=== PATIENT | female | born 1960 | race Caucasian/White ===

== ENCOUNTER 2017-06-27 14:39 | Inpatient (IN) | payer OTHER ==
[~2017-06-27] VITALS: Ht 160 cm; Wt 60.1 kg
[2017-06-27] MEDS ORDERED: SODIUM CHLORIDE FLUSH 10ML SYR IVF ONE (15:00)
[2017-06-27 15:42] LABS: BASOPHILS % (AUTO) 0 % (0-1); EOSINOPHILS # (AUTO) 0.07 x10^3/uL (0-0.4); EOSINOPHILS % (AUTO) 1 % (1-7); LYMPHOCYTES # (AUTO) 1.09 x10^3/uL (1-3.4); LYMPHOCYTES % (AUTO) 14 % (22-44); MD NO; MEAN CORPUSCULAR HGB CONC 33.4 g/dL (32.4-35.8); MEAN PLATELET VOLUME 9.8 fL (7.4-10.4); MONOCYTES # (AUTO) 0.38 x10^3/uL (0.2-0.8); MONOCYTES % (AUTO) 5 % (2-9); NEUTROPHILS # (AUTO) 6.51 x10^3/uL (1.8-6.8); NEUTROPHILS % (AUTO) 81 % (42-75); PLATELET COUNT 206 x10^3/uL (130-400); RED BLOOD COUNT 3.69 x10^6/uL (3.82-5.3); RED CELL DISTRIBUTION WIDTH 13.6 % (9.6-15.2)
[2017-06-27 15:52] LABS: ALBUMIN 2.9 g/dL (3.4-5.0); ANION GAP 8 mmol/L (5-15); CALCIUM 8.2 mg/dL (8.5-10.1); CHLORIDE 107 mmol/L (98-107); INTERNATIONAL NORMALIZED RATIO 0.91 (0.93-1.1); PROTHROMBIN TIME 9.5 Seconds (9.6-11.5)
[2017-06-27 15:54] LABS: CREATININE 5.52 mg/dL (0.55-1.02)
[2017-06-27] MEDS ORDERED: LISI-167 PO ×2 (15:55→15:56)
[2017-06-27] MEDS ORDERED: GABA300C10 PO (15:57)
[2017-06-27] MEDS ORDERED: FLUO20TA25 PO (15:57)
[2017-06-27] MEDS ORDERED: SEVE800T8 PO (15:59)
[2017-06-27] MEDS ORDERED: RANI-276 PO (16:00)
[2017-06-27] MEDS ORDERED: HYDROmorphone 2 MG/ML, 1ML ONE ×2 (16:07→19:47)
[2017-06-27] MEDS ORDERED: ONDANSETRON 2MG/ML, 2ML ONE ×2 (16:08→18:02)
[2017-06-27] MEDS ORDERED: HYDROmorphone 1 MG/ML, 1ML IVPush PRN (16:30)
[2017-06-27] MEDS ORDERED: ONDANSETRON 2MG/ML, 2ML IVPush ONE (16:30)
[2017-06-27] MEDS ORDERED: ONDANSETRON 2MG/ML, 2ML IVPush PRN ×2 (17:00→18:30)
[2017-06-27] MEDS ORDERED: ONDANSETRON ODT 4 MG PO PRN (17:00)
[2017-06-27] MEDS ORDERED: morphine SULFATE 10 MG/ML, 1ML IVPush PRN (17:00)
[2017-06-27] MEDS ORDERED: HYDROcodone/APAP 5/325 TABLET PO PRN (17:00)
[2017-06-27] MEDS ORDERED: ACETAMINOPHEN 325 MG TABLET PO PRN ×2 (17:00→18:30)
[2017-06-27] MEDS ORDERED: hydrALAzine 20 MG/ML, 1ML IVPush PRN (17:00)
[2017-06-27] MEDS ORDERED: SODIUM CHLORIDE FLUSH 10ML SYR IVF PRN (17:00)
[2017-06-27] MEDS ORDERED: LABETALOL 5MG/ML, 20ML IVPush PRN (17:00)
[2017-06-27] MEDS ORDERED: MIDAZOLAM 1 MG/ML, 2ML ONE (17:42)
[2017-06-27] MEDS ORDERED: LIDOCAINE-MPF 2% ,5ML ONE (17:43)
[2017-06-27] MEDS ORDERED: PROPOFOL 10 MG/ML, 20ML ONE (17:43)
[2017-06-27] MEDS ORDERED: FENTANYL PF 250 MCG/5ML ONE (17:43)
[2017-06-27] MEDS ORDERED: ROCURONIUM 10 MG/ML,10ML ONE (17:45)
[2017-06-27] MEDS ORDERED: CEFAZOLIN 1,000 MG ONE (18:02)
[2017-06-27] MEDS ORDERED: PHENYLEPHRINE 10 MG/ML ONE (18:02)
[2017-06-27] MEDS ORDERED: KETAMINE 10 MG/ML, 20ML ONE (18:02)
[2017-06-27] MEDS ORDERED: DEXAMETHASONE 4 MG/ML, 1ML ONE ×2 (18:18)
[2017-06-27] MEDS ORDERED: hydrALAzine 20 MG/ML, 1ML IV PRN (18:30)
[2017-06-27] MEDS ORDERED: MEPERIDINE/PF 25MG/0.5ML IVPush PRN (18:30)
[2017-06-27] MEDS ORDERED: OXYcodone 5 MG/5 ML ORAL.SOL UDC PO PRN (18:30)
[2017-06-27] MEDS ORDERED: FENTANYL PF 100 MCG/2ML IV PRN (18:30)
[2017-06-27] MEDS ORDERED: PROMETHAZINE 25 MG/ML, 1ML IV PRN (18:30)
[2017-06-27] MEDS ORDERED: LABETALOL 5MG/ML, 20ML IV PRN (18:30)
[2017-06-27] MEDS ORDERED: HYDROmorphone 1 MG/ML, 1ML IV PRN (18:30)
[2017-06-27] MEDS ORDERED: OXYcodone 5 MG/5 ML ORAL.SOL UDC ONE (19:40)
[2017-06-27] MEDS ORDERED: FENTANYL PF 100 MCG/2ML ONE (19:40)
[2017-06-27] MEDS ORDERED: INSULIN REGULAR 100 UNITS/ML, 3ML VIAL SQ-INSULIN SCH (21:00)
[2017-06-27] MEDS ORDERED: PHARMACY INSTRUCTION MC PRN (21:30)
[2017-06-27] MEDS ORDERED: HYDROcodone/APAP 10/325 MG TABLET PO PRN (21:30)
[2017-06-27] MEDS ORDERED: morphine SULFATE 10 MG/ML, 1ML IV PRN (21:30)
[2017-06-27] MEDS ORDERED: POTASSIUM CHLORIDE 20 MEQ in SODIUM CHLORIDE 0.9% 1,000 ML IV SCH (21:30)
[2017-06-27] MEDS ORDERED: SODIUM CHLORIDE 0.9% 1,000 ML IV SCH (22:00)
[2017-06-27] MEDS: INSULIN LISPRO 100 UNITS/ML, PEN SQ-INSULIN SCH (22:14)
[2017-06-27] MEDS: HEPARIN 5,000 UNITS/ML, 1ML SQ SCH (22:31)
[2017-06-27] MEDS: GABAPENTIN 300 MG CAPSULE PO SCH (22:32)
[2017-06-27] MEDS: FLUOXETINE 10 MG CAP PO SCH (22:32)
[2017-06-28 02:54] VITALS: BP 118/60
[2017-06-28] MEDS: OXYcodone 5 MG/5 ML ORAL.SOL UDC PO PRN ×4 (04:49→20:37)
[2017-06-28 05:15] LABS: ALANINE AMINOTRANSFERASE 22 U/L (12-78); ALBUMIN 2.2 g/dL (3.4-5.0); ANION GAP 10 mmol/L (5-15); CALCIUM 7.1 mg/dL (8.5-10.1); CHLORIDE 108 mmol/L (98-107); CREATININE 5.55 mg/dL (0.55-1.02)
[2017-06-28 05:17] LABS: ALKALINE PHOSPHATASE 67 U/L (45-117); BILIRUBIN,TOTAL 0.2 mg/dL (0.2-1.0); TOTAL PROTEIN 5.1 g/dL (6.4-8.2)
[2017-06-28 05:23] LABS: BASOPHILS % (AUTO) 0 % (0-1); EOSINOPHILS % (AUTO) 0 % (1-7); LYMPHOCYTES # (AUTO) 0.67 x10^3/uL (1-3.4); LYMPHOCYTES % (AUTO) 7 % (22-44); MD NO; MEAN CORPUSCULAR HEMOGLOBIN 31.3 pg (27.0-34.8); MEAN CORPUSCULAR HGB CONC 33.1 g/dL (32.4-35.8); MEAN CORPUSCULAR VOLUME 94.6 fL (80-100); MEAN PLATELET VOLUME 10.2 fL (7.4-10.4); MONOCYTES # (AUTO) 0.35 x10^3/uL (0.2-0.8); MONOCYTES % (AUTO) 4 % (2-9); NEUTROPHILS # (AUTO) 8.46 x10^3/uL (1.8-6.8); NEUTROPHILS % (AUTO) 89 % (42-75); PLATELET COUNT 167 x10^3/uL (130-400); RED BLOOD COUNT 2.64 x10^6/uL (3.82-5.3); RED CELL DISTRIBUTION WIDTH 13.9 % (9.6-15.2)
[2017-06-28 06:48] VITALS: BP 115/58
[2017-06-28] MEDS: HEPARIN 5,000 UNITS/ML, 1ML SQ SCH ×2 (06:53→11:32)
[2017-06-28] MEDS ORDERED: SEVELAMER 800MG TABLET PO SCH (08:00)
[2017-06-28] MEDS: INSULIN LISPRO 100 UNITS/ML, PEN SQ-INSULIN SCH ×4 (09:46→21:20)
[2017-06-28] MEDS: SODIUM CHLORIDE FLUSH 10ML SYR IVF SCH ×2 (09:47→20:38)
[2017-06-28] MEDS: LISINOPRIL 10 MG TABLET PO SCH (09:47)
[2017-06-28] MEDS: FLUOXETINE 10 MG CAP PO SCH ×2 (09:47→20:37)
[2017-06-28] MEDS ORDERED: INSU100I32 SQ-INSULIN (09:57)
[2017-06-28] MEDS: SEVELAMER 800MG TABLET PO SCH ×2 (11:33→16:51)
[2017-06-28] MEDS ORDERED: INSULIN DEGLUDEC SQ-INSULIN SCH (13:00)
[2017-06-28 13:50] VITALS: BP 118/56
[2017-06-28 18:42] VITALS: BP 112/56
[2017-06-28] MEDS: GABAPENTIN 300 MG CAPSULE PO SCH (20:37)
[2017-06-29 02:11] VITALS: BP 117/61
[2017-06-29 04:54] LABS: ALBUMIN 2.1 g/dL (3.4-5.0); ANION GAP 9 mmol/L (5-15); CALCIUM 7.4 mg/dL (8.5-10.1); CHLORIDE 103 mmol/L (98-107)
[2017-06-29 05:02] LABS: % IRON SATURATION 49 % (20-55); ALANINE AMINOTRANSFERASE 7 U/L (12-78); ALKALINE PHOSPHATASE 71 U/L (45-117); BILIRUBIN,TOTAL 0.2 mg/dL (0.2-1.0); CREATININE 5.98 mg/dL (0.55-1.02); IRON LEVEL 58 mcg/dL (50-170); TOTAL IRON BINDING CAPACITY 119 mcg/dL (250-450); TOTAL PROTEIN 5.1 g/dL (6.4-8.2)
[2017-06-29 05:04] LABS: MEAN CORPUSCULAR HEMOGLOBIN 30.9 pg (27.0-34.8); MEAN CORPUSCULAR HGB CONC 33.1 g/dL (32.4-35.8); MEAN CORPUSCULAR VOLUME 93.3 fL (80-100); MEAN PLATELET VOLUME 10.1 fL (7.4-10.4); PLATELET COUNT 147 x10^3/uL (130-400); RED CELL DISTRIBUTION WIDTH 13.9 % (9.6-15.2)
[2017-06-29 06:34] LABS: BASOPHILS # (AUTO) 0.02 x10^3/uL (0-0.1); BASOPHILS % (AUTO) 0 % (0-1); EOSINOPHILS % (AUTO) 1 % (1-7); LYMPHOCYTES % (AUTO) 25 % (22-44); MD SCAN; MONOCYTES # (AUTO) 0.74 x10^3/uL (0.2-0.8); MONOCYTES % (AUTO) 10 % (2-9); NEUTROPHILS # (AUTO) 4.67 x10^3/uL (1.8-6.8); NEUTROPHILS % (AUTO) 64 % (42-75)
[2017-06-29 07:15] VITALS: BP 133/56
[2017-06-29] MEDS ORDERED: DOCUSATE 100 MG CAPSULE ONE (07:59)
[2017-06-29] MEDS: FLUOXETINE 10 MG CAP PO SCH ×2 (08:04→20:06)
[2017-06-29] MEDS: DOCUSATE 100 MG CAPSULE PO SCH ×2 (08:04→20:05)
[2017-06-29] MEDS: SEVELAMER 800MG TABLET PO SCH ×3 (08:04→17:15)
[2017-06-29] MEDS: INSULIN LISPRO 100 UNITS/ML, PEN SQ-INSULIN SCH ×4 (08:05→20:14)
[2017-06-29] MEDS: SODIUM CHLORIDE FLUSH 10ML SYR IVF SCH (08:07)
[2017-06-29] MEDS: LISINOPRIL 10 MG TABLET PO SCH (08:07)
[2017-06-29] MEDS ORDERED: INSULIN DEGLUDEC SQ-INSULIN SCH (09:00)
[2017-06-29] MEDS ORDERED: IBUPROFEN 200 MG TABLET PO PRN (09:30)
[2017-06-29] MEDS ORDERED: IBUPROFEN 800 MG TABLET PO ONE (09:30)
[2017-06-29] MEDS ORDERED: IRON SUCROSE COMPLEX 100MG/5ML IV SCH (09:30)
[2017-06-29] MEDS ORDERED: DARBEPOETIN 200 MCG/ML SQ SCH (10:30)
[2017-06-29] MEDS ORDERED: OXYcodone 5 MG/5 ML ORAL.SOL UDC PO PRN (10:30)
[2017-06-29] MEDS: ACETAMINOPHEN 500 MG TABLET PO SCH ×2 (11:45→20:05)
[2017-06-29 13:06] VITALS: BP 120/64
[2017-06-29] MEDS ORDERED: ASCORBIC ACID 500 MG TABLET PO SCH (17:00)
[2017-06-29 19:11] VITALS: BP 149/57
[2017-06-29] MEDS: GABAPENTIN 300 MG CAPSULE PO SCH (20:05)
== END 2017-06-29 21:00 | disposition short-term general hospital (02) | DRG 480 ==
LOC: ED 16:47 → EDIP 16:48 → ED 17:08 → 4NOR 20:33
PROVIDERS: ADMIT Internal Medicine Pulmonary Disease; ATTEND Internal Medicine Pulmonary Disease
PROC: 0QH606Z Insertion of Intramedullary Internal Fixation Device into Right Upper Femur, Open Approach (ICD-10-PCS; principal; 2017-06-27 17:30)
PROC: 5A1D70Z Performance of Urinary Filtration, Intermittent, Less than 6 Hours Per Day (ICD-10-PCS; 2017-06-28)
DX: S72.141A Displaced intertrochanteric fracture of right femur, initial encounter for closed fracture (principal); N18.6 End stage renal disease; E11.22 Type 2 diabetes mellitus with diabetic chronic kidney disease; E11.40 Type 2 diabetes mellitus with diabetic neuropathy, unspecified; I12.0 Hypertensive chronic kidney disease with stage 5 chronic kidney disease or end stage renal disease; D63.1 Anemia in chronic kidney disease; N25.0 Renal osteodystrophy; W18.2XXA Fall in (into) shower or empty bathtub, initial encounter; Y92.002 Bathroom of unspecified non-institutional (private) residence as the place of occurrence of the external cause; Y93.E1 Activity, personal bathing and showering; Z99.2 Dependence on renal dialysis
CPT/HCPCS: 36415; 71045; 76001; 80048; 80053; 82040; 82306; 82728; 82962; 83540; 83550; 83735; 83970; 84100; 84550; 85025; 85610; 85730; 93005; 96374; 96375; C1713; J0690; J0881; J1100; J1170; J1644; J2250; J2405; J2704; J3010; J3490; J1815; J2370; J7030

== ENCOUNTER 2018-10-24 14:10 | Inpatient (IN) | payer OTHER ==
[~2018-10-24] VITALS: Ht 160 cm; Wt 49.9 kg
[~2018-10-24 14:10] MED LIST: FLUO20TA25 PO; GABA300C10 PO; INSU100I32 SQ-INSULIN; LISI-167 PO; RANI-448 PO; SEVE800T8 PO
[2018-10-24 14:54] LABS: BASOPHILS # (AUTO) 0.05 x10^3/uL (0-0.1); BASOPHILS % (AUTO) 0 % (0-1); EOSINOPHILS # (AUTO) 0.09 x10^3/uL (0-0.4); EOSINOPHILS % (AUTO) 1 % (1-7); LYMPHOCYTES # (AUTO) 1.94 x10^3/uL (1-3.4); LYMPHOCYTES % (AUTO) 18 % (22-44); MD NO; MEAN CORPUSCULAR HEMOGLOBIN 30.4 pg (27.0-34.8); MEAN CORPUSCULAR HGB CONC 32.6 g/dL (32.4-35.8); MEAN CORPUSCULAR VOLUME 93.3 fL (80-100); MEAN PLATELET VOLUME 9.3 fL (7.4-10.4); MONOCYTES # (AUTO) 0.85 x10^3/uL (0.2-0.8); MONOCYTES % (AUTO) 8 % (2-9); NEUTROPHILS # (AUTO) 8.17 x10^3/uL (1.8-6.8); NEUTROPHILS % (AUTO) 74 % (42-75); PLATELET COUNT 380 x10^3/uL (130-400); RED BLOOD COUNT 3.37 x10^6/uL (3.82-5.3); RED CELL DISTRIBUTION WIDTH 14.6 % (9.6-15.2)
--- NOTE | 2018-10-24 14:56 | NUR ---
PT IN RADIOLOGY AT THIS TIME.
--- NOTE | 2018-10-24 15:00 | NUR ---
late entry d/t patient care: pt presents to ED with left hip pain s/p fall today. pt's family reports pt is dizzy when standing, for last month. cms intact to left LE, bilateral legs have equal strength. pt is nonambulatory at this time, secondary to pain. pt is belarusian speaking, refusing interpretive services. son Kapil (age 33) at bedside translating at pt request. pt a&o, resps even and unlabored, nadn.
[2018-10-24 15:05] LABS: ALBUMIN 2.9 g/dL (3.4-5.0); ANION GAP 15 mmol/L (5-15); CALCIUM 9.1 mg/dL (8.5-10.1); CHLORIDE 101 mmol/L (98-107)
[2018-10-24 15:08] LABS: ALANINE AMINOTRANSFERASE 31 U/L (12-78); ALKALINE PHOSPHATASE 117 U/L (45-117); BILIRUBIN,TOTAL 0.5 mg/dL (0.2-1.0); CREATININE 9.59 mg/dL (0.55-1.02); TOTAL PROTEIN 6.9 g/dL (6.4-8.2)
--- NOTE | 2018-10-24 16:09 | NUR ---
PT BACK FROM CT, PT AWAKE, ALERT, RESPS EVEN AND UNLABORED. ASTERN. TECH AT BEDSIDE FOR REPEAT ORTHOS. Addendum: 10/24/18 at 1610 by ZAN PT BACK FROM CT, PT AWAKE, ALERT, RESPS EVEN AND UNLABORED. NADN. TECH AT BEDSIDE FOR ORTHOSTATIC VS.
--- NOTE | 2018-10-24 16:39 | NUR ---
orthostatics reviewed by AIDE Dove. EDPA at bedside to reassess.
--- NOTE | 2018-10-24 16:40 | NUR ---
RN instructed to hold PO meds.
[2018-10-24] MEDS ORDERED: HYDROcodone/APAP 5/325 TABLET PO ONE (17:00)
[2018-10-24] MEDS ORDERED: ONDANSETRON ODT 4 MG PO ONE (17:00)
[2018-10-24] MEDS ORDERED: ONDANSETRON 2MG/ML, 2ML IVPush ONE (17:00)
[2018-10-24] MEDS ORDERED: ONDANSETRON 2MG/ML, 2ML ONE (17:08)
[2018-10-24] MEDS ORDERED: MORPHINE SULFATE 4 MG/ML, 1ML ONE ×2 (17:08→18:24)
[2018-10-24] MEDS: MORPHINE SULFATE 4 MG/ML, 1ML IVPush PRN ×2 (17:10→18:26)
--- NOTE | 2018-10-24 17:21 | NUR ---
pt medicated per emar, tolerated well. all monitors in place . hospitalist at bedside.
--- NOTE | 2018-10-24 17:59 | NUR ---
report called to receiving OTILIA Keller. pt awaiting transport to room 369.
[2018-10-24] MEDS ORDERED: CHOL100012 PO (18:09)
[2018-10-24] MEDS ORDERED: ASCO10004 PO (18:09)
[2018-10-24] MEDS ORDERED: FOLI0.8T7 PO (18:09)
[2018-10-24] MEDS ORDERED: CALC0.25 PO (18:09)
[2018-10-24] MEDS ORDERED: DULO30CA2 PO (18:09)
[2018-10-24] MEDS ORDERED: IRBE75TA10 PO (18:09)
[2018-10-24] MEDS ORDERED: AMLO-150 PO (18:09)
[2018-10-24] MEDS ORDERED: OMEP-110 PO (18:09)
[2018-10-24] MEDS ORDERED: SEVE800T8 PO (18:09)
[2018-10-24] MEDS ORDERED: INSU100I32 SQ-INSULIN (18:09)
[2018-10-24] MEDS ORDERED: INSU100I17 SQ-INSULIN (18:09)
--- NOTE | 2018-10-24 18:23 | NUR ---
PT REPORTS LEFT POSTERIOR HIP PAIN IS NOW 6/10, REQUESTS SECOND MORPHINE DOSE. PT A&O, RESPS EVEN AND UNLABORED, FAMILY AT BEDSIDE. ALL MONITORS IN PLACE. 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
[2018-10-24] MEDS ORDERED: CARV6.2512 PO (18:37)
[2018-10-24] MEDS ORDERED: ACETAMINOPHEN 325 MG TABLET PO PRN (19:00)
[2018-10-24] MEDS ORDERED: BISACODYL 10 MG SUPP PR PRN (19:00)
[2018-10-24] MEDS ORDERED: POLYETHYLENE GLYCOL 17 GM PACKET PO PRN (19:00)
--- NOTE | 2018-10-24 19:08 | NUR ---
REPORT GIVEN TO [facility] RIGGER JOHN. PT AWAITING TRANSPORT TO ROOM 404-1. PT A&O, RESPS EVEN AND UNLABORED. DENIES PAIN AT THIS TIME. FAMILY AT BEDSIDE.
[2018-10-24 19:20] LABS: HEMOGLOBIN A1C 8.2 % (4.2-6.3)
[2018-10-24] MEDS: CHOLECALCIFEROL 1,000 UNIT TABLET PO SCH (19:42)
[2018-10-24] MEDS: HEPARIN 5,000 UNITS/ML, 1ML SQ SCH (19:42)
[2018-10-24] MEDS: SEVELAMER CARBONATE 800MG TAB PO SCH (19:42)
[2018-10-24] MEDS: ONDANSETRON ODT 4 MG PO PRN (20:09)
[2018-10-24 20:14] VITALS: BP 194/82
[2018-10-24 20:28] VITALS: BP 179/71
[2018-10-24 20:34] VITALS: BP 150/59
[2018-10-24] MEDS ORDERED: INSU100C SQ-INSULIN (21:22)
--- NOTE | 2018-10-24 21:45 | NUR ---
PT WAS TRANSPORTED TO [facility] AT 1920. PRIOR TO TRANSPORT, MED REC UPDATED BY THIS RN AFTER VERIFYING WITH PT. HOSPITALIST HOMA SCHRADER CALLED TO NOTIFY THAT PT'S MED REC HAS BEEN UPDATED TO INCLUDE COREG AND HUMALOG INSTEAD OF NOVOLOG. RACIEL NOTIFIED THAT MED REC REQUIRES PROVIDER REVIEW. RECEIVING OTILIA BLEVINS.
[2018-10-25 01:20] VITALS: BP 132/68
[2018-10-25] MEDS: HEPARIN 5,000 UNITS/ML, 1ML SQ SCH ×3 (03:29→21:47)
[2018-10-25 06:33] LABS: BASOPHILS # (AUTO) 0.03 x10^3/uL (0-0.1); BASOPHILS % (AUTO) 0 % (0-1); EOSINOPHILS # (AUTO) 0.09 x10^3/uL (0-0.4); EOSINOPHILS % (AUTO) 1 % (1-7); LYMPHOCYTES # (AUTO) 2.35 x10^3/uL (1-3.4); LYMPHOCYTES % (AUTO) 24 % (22-44); MD NO; MEAN CORPUSCULAR HEMOGLOBIN 30.9 pg (27.0-34.8); MEAN CORPUSCULAR HGB CONC 32.5 g/dL (32.4-35.8); MEAN CORPUSCULAR VOLUME 94.9 fL (80-100); MEAN PLATELET VOLUME 9.7 fL (7.4-10.4); MONOCYTES # (AUTO) 0.81 x10^3/uL (0.2-0.8); MONOCYTES % (AUTO) 8 % (2-9); NEUTROPHILS # (AUTO) 6.54 x10^3/uL (1.8-6.8); NEUTROPHILS % (AUTO) 67 % (42-75); PLATELET COUNT 325 x10^3/uL (130-400); RED CELL DISTRIBUTION WIDTH 14.9 % (9.6-15.2)
[2018-10-25 07:15] LABS: ALBUMIN 2.7 g/dL (3.4-5.0); CALCIUM 8.8 mg/dL (8.5-10.1); CHLORIDE 101 mmol/L (98-107)
[2018-10-25 07:23] LABS: % IRON SATURATION 16 % (20-55); ALANINE AMINOTRANSFERASE 28 U/L (12-78); ALKALINE PHOSPHATASE 97 U/L (45-117); ANION GAP 15 mmol/L (5-15); BILIRUBIN,TOTAL 0.4 mg/dL (0.2-1.0); IRON LEVEL 24 mcg/dL (50-170); TOTAL IRON BINDING CAPACITY 147 mcg/dL (250-450); TOTAL PROTEIN 6.4 g/dL (6.4-8.2)
[2018-10-25 08:28] VITALS: BP 157/67
[2018-10-25] MEDS ORDERED: INSULIN DEGLUDEC 15 UNIT SQ-INSULIN SCH (09:00)
[2018-10-25] MEDS: DULOXETINE 30 MG CAPSULE.DR PO SCH (11:04)
[2018-10-25] MEDS: CALCITRIOL 0.25 MCG CAPSULE PO SCH (11:04)
[2018-10-25] MEDS: MULTIVITS,STRESS FORMULA 1 TABLET PO SCH (11:04)
[2018-10-25] MEDS: ASCORBIC ACID 500 MG TABLET PO SCH (11:04)
[2018-10-25] MEDS: SENNA/DOCUSATE TABLET PO SCH (11:04)
[2018-10-25] MEDS: CHOLECALCIFEROL 1,000 UNIT TABLET PO SCH ×2 (11:05→21:47)
[2018-10-25] MEDS: OMEPRAZOLE 20 MG CAPSULE.DR PO SCH (11:05)
[2018-10-25] MEDS: SEVELAMER CARBONATE 800MG TAB PO SCH ×3 (11:05→17:58)
[2018-10-25] MEDS ORDERED: DEXTROSE 4 GM TAB.CHEW PO PRN (12:00)
[2018-10-25] MEDS ORDERED: DEXTROSE 50%, 50ML SYRINGE IVPush PRN (12:00)
[2018-10-25] MEDS ORDERED: GLUCAGON 1 MG IM PRN (12:00)
[2018-10-25] MEDS: SODIUM CHLORIDE FLUSH 10ML SYR IVF SCH ×2 (12:30→21:48)
[2018-10-25 13:05] LABS: FREE T4 (FREE THYROXINE) 1.31 ng/dL (0.76-1.46)
[2018-10-25] MEDS: INSULIN DEGLUDEC 14 UNIT SQ-INSULIN SCH (13:12)
[2018-10-25] MEDS: INSULIN LISPRO 100 UNITS/ML, PEN SQ-INSULIN SCH ×3 (13:37→21:47)
[2018-10-25 15:40] VITALS: BP 128/67
[2018-10-25] MEDS: ONDANSETRON ODT 4 MG PO PRN (17:59)
[2018-10-25 19:58] VITALS: BP 145/72
[2018-10-25] MEDS ORDERED: GENTAMICIN CRM 0.1%, 30GM TP SCH (22:00)
[2018-10-25] MEDS ORDERED: OXYcodone IR 5MG TABLET PO PRN (22:30)
[2018-10-25] MEDS ORDERED: OXYcodone IR 5MG TABLET ONE (22:31)
[2018-10-26 00:26] VITALS: BP 143/73
[2018-10-26 06:08] LABS: BASOPHILS # (AUTO) 0.02 x10^3/uL (0-0.1); BASOPHILS % (AUTO) 0 % (0-1); EOSINOPHILS # (AUTO) 0.07 x10^3/uL (0-0.4); EOSINOPHILS % (AUTO) 1 % (1-7); LYMPHOCYTES # (AUTO) 1.68 x10^3/uL (1-3.4); LYMPHOCYTES % (AUTO) 20 % (22-44); MD NO; MEAN CORPUSCULAR HGB CONC 32.8 g/dL (32.4-35.8); MEAN CORPUSCULAR VOLUME 94.5 fL (80-100); MEAN PLATELET VOLUME 9.6 fL (7.4-10.4); MONOCYTES # (AUTO) 0.61 x10^3/uL (0.2-0.8); MONOCYTES % (AUTO) 7 % (2-9); NEUTROPHILS % (AUTO) 72 % (42-75); PLATELET COUNT 330 x10^3/uL (130-400); RED BLOOD COUNT 3.25 x10^6/uL (3.82-5.3); RED CELL DISTRIBUTION WIDTH 15.3 % (9.6-15.2)
[2018-10-26] MEDS: HEPARIN 5,000 UNITS/ML, 1ML SQ SCH (06:12)
[2018-10-26 06:22] LABS: CHLORIDE 95 mmol/L (98-107)
[2018-10-26 06:34] LABS: % IRON SATURATION 11 % (20-55); ALANINE AMINOTRANSFERASE 25 U/L (12-78); ALBUMIN 2.7 g/dL (3.4-5.0); ALKALINE PHOSPHATASE 107 U/L (45-117); ANION GAP 14 mmol/L (5-15); BILIRUBIN,TOTAL 0.4 mg/dL (0.2-1.0); CALCIUM 8.7 mg/dL (8.5-10.1); IRON LEVEL 25 mcg/dL (50-170); TOTAL IRON BINDING CAPACITY 221 mcg/dL (250-450)
[2018-10-26] MEDS ORDERED: FLUDROCORTISONE 0.1 MG TABLET PO SCH ×2 (09:00)
[2018-10-26] MEDS ORDERED: LISINOPRIL 10 MG TABLET PO SCH (09:00)
[2018-10-26] MEDS: INSULIN LISPRO 100 UNITS/ML, PEN SQ-INSULIN SCH ×2 (09:36→11:00)
[2018-10-26] MEDS: INSULIN DEGLUDEC 14 UNIT SQ-INSULIN SCH (09:36)
[2018-10-26] MEDS: SEVELAMER CARBONATE 800MG TAB PO SCH ×2 (09:38→13:54)
[2018-10-26] MEDS: CALCITRIOL 0.25 MCG CAPSULE PO SCH (09:38)
[2018-10-26] MEDS: OMEPRAZOLE 20 MG CAPSULE.DR PO SCH (09:38)
[2018-10-26] MEDS: MULTIVITS,STRESS FORMULA 1 TABLET PO SCH (09:39)
[2018-10-26] MEDS: SENNA/DOCUSATE TABLET PO SCH (09:39)
[2018-10-26] MEDS: CHOLECALCIFEROL 1,000 UNIT TABLET PO SCH (09:39)
[2018-10-26] MEDS: ASCORBIC ACID 500 MG TABLET PO SCH (09:39)
[2018-10-26] MEDS: DULOXETINE 30 MG CAPSULE.DR PO SCH (09:41)
[2018-10-26] MEDS: SODIUM CHLORIDE FLUSH 10ML SYR IVF SCH (09:42)
[2018-10-26 09:50] VITALS: BP 113/66
[2018-10-26] MEDS ORDERED: MAALOX/HYOSCYAMINE/LIDOCAINE 45 ML BTL PO ONE (11:00)
[2018-10-26 12:22] LABS: ANION GAP 11 mmol/L (5-15); CALCIUM 9.1 mg/dL (8.5-10.1); CHLORIDE 98 mmol/L (98-107)
[2018-10-26 13:40] VITALS: BP 113/69
[2018-10-26] MEDS ORDERED: MIRT15TA4 PO (14:15)
[2018-10-26] MEDS ORDERED: FLUD0.1T PO (14:15)
[2018-10-26] MEDS ORDERED: ACET325T14 PO (14:15)
[2018-10-26] MEDS ORDERED: ONDA4TAB7 PO (14:15)
[2018-10-26] MEDS ORDERED: PANT20TA3 PO (14:15)
[2018-10-26] MEDS ORDERED: LIDOCAINE 4% CREAM 5GM TUBE EXT PRN (14:30)
[2018-10-26] MEDS ORDERED: PANTOPRAZOLE 20MG TABLET PO SCH (16:00)
[2018-10-26] MEDS ORDERED: MIRTAZAPINE 15 MG TABLET PO SCH (21:00)
== END 2018-10-26 17:00 | disposition home health service (06) | DRG 73 ==
LOC: ED 17:05 → EDIP 17:06 → ED 17:27 → 4WST 19:19 → DCLOUNGE 10-26 16:32
PROVIDERS: ADMIT Internal Medicine; ATTEND Internal Medicine
PROC: 3E1M39Z Irrigation of Peritoneal Cavity using Dialysate, Percutaneous Approach (ICD-10-PCS; principal; 2018-10-25)
DX: G90.8 Other disorders of autonomic nervous system (principal); N18.6 End stage renal disease; E27.40 Unspecified adrenocortical insufficiency; I12.0 Hypertensive chronic kidney disease with stage 5 chronic kidney disease or end stage renal disease; I95.1 Orthostatic hypotension; R29.6 Repeated falls; D63.1 Anemia in chronic kidney disease; F32.9 Major depressive disorder, single episode, unspecified; E11.22 Type 2 diabetes mellitus with diabetic chronic kidney disease; E11.42 Type 2 diabetes mellitus with diabetic polyneuropathy; Z99.2 Dependence on renal dialysis; K21.9 Gastro-esophageal reflux disease without esophagitis; R63.0 Anorexia; Z79.4 Long term (current) use of insulin
CPT/HCPCS: 36415; 80048; 80053; 82306; 82533; 82728; 82947; 82962; 83036; 83540; 83550; 83735; 83970; 84100; 84439; 84443; 84550; 85025; 86704; 86706; 87340; 93005; 93306; 93880; 96374; 96375; 96376; G0378; J1644; J2405; Q0162; J2270

== ENCOUNTER 2018-12-26 18:15 | Inpatient (IN) | payer OTHER ==
[~2018-12-26] VITALS: Ht 165.1 cm; Wt 53.5 kg
[2018-12-29 14:05] VITALS: BP 111/58
== END 2018-12-29 16:28 | disposition home or self-care (01) | DRG 77 ==
LOC: ED 19:57 → EDIP 20:00 → CCU 22:47 → 4WST 12-27 10:35
PROVIDERS: ADMIT Family Medicine; ATTEND Family Medicine
PROC: 3E1M39Z Irrigation of Peritoneal Cavity using Dialysate, Percutaneous Approach (ICD-10-PCS; principal; 2018-12-26)
PROC: 3E1M39Z Irrigation of Peritoneal Cavity using Dialysate, Percutaneous Approach (ICD-10-PCS; 2018-12-27)
PROC: 0T9B70Z Drainage of Bladder with Drainage Device, Via Natural or Artificial Opening (ICD-10-PCS; 2018-12-27)
PROC: 3E1M39Z Irrigation of Peritoneal Cavity using Dialysate, Percutaneous Approach (ICD-10-PCS; 2018-12-28)
DX: I67.4 Hypertensive encephalopathy (principal); E43 Unspecified severe protein-calorie malnutrition; N18.6 End stage renal disease; E27.40 Unspecified adrenocortical insufficiency; I12.0 Hypertensive chronic kidney disease with stage 5 chronic kidney disease or end stage renal disease; I16.9 Hypertensive crisis, unspecified; N25.81 Secondary hyperparathyroidism of renal origin; Z68.1 Body mass index [BMI] 19.9 or less, adult; D63.1 Anemia in chronic kidney disease; E11.22 Type 2 diabetes mellitus with diabetic chronic kidney disease; E11.36 Type 2 diabetes mellitus with diabetic cataract; E11.42 Type 2 diabetes mellitus with diabetic polyneuropathy; E11.43 Type 2 diabetes mellitus with diabetic autonomic (poly)neuropathy; E11.65 Type 2 diabetes mellitus with hyperglycemia; E88.89 Other specified metabolic disorders; E55.9 Vitamin D deficiency, unspecified; F32.9 Major depressive disorder, single episode, unspecified; F41.9 Anxiety disorder, unspecified; H54.62 Unqualified visual loss, left eye, normal vision right eye; I45.81 Long QT syndrome; I95.1 Orthostatic hypotension; K21.9 Gastro-esophageal reflux disease without esophagitis; Z79.899 Other long term (current) drug therapy; Z79.4 Long term (current) use of insulin; Z99.2 Dependence on renal dialysis
CPT/HCPCS: 36415; 70450; 70551; 71045; 80048; 80053; 80061; 80069; 80307; 81001; 82040; 82140; 82533; 82947; 82962; 83036; 83735; 84100; 84311; 84439; 84443; 84484; 85025; 87040; 87070; 87081; 87086; 87205; 89051; 90945; 93005; 99285; G0378; J1644; J2405; J2550; 92523-GN; C9113; J0360; J1815; J2270; J7050

== ENCOUNTER 2019-03-27 12:19 | Inpatient (IN) | payer OTHER ==
[~2019-03-27] VITALS: Ht 160 cm; Wt 62.4 kg
[~2019-03-27 12:19] MED LIST changes: +ACET325T14 PO; +AMLO-150 PO; +AMLO2.5T5 PO; +ASCO10004 PO; +CALC0.25 PO; +CARV6.2512 PO; +CHOL100012 PO; +CHOL10003 PO; +DULO30CA2 PO; +DULO30CA44 PO; +FLUD0.1T PO; +FOLI0.8T7 PO; +INSU100C SQ-INSULIN; +INSU100I17 SC; +INSU100I17 SQ-INSULIN; +IRBE75TA10 PO; +MEGE40TA PO; +MEGESTROL PO; +MIRT-34 PO; +OMEP-110 PO; +OMEP40CA42 PO; +ONDA4TAB7 PO; +PANT20TA3 PO; +SEVE2.4P PO; +VITA1CAP PO
--- NOTE | 2019-03-27 13:28 | NUR ---
TASK RN: PT WC'D TO ROOM 21 FROM [facility] FOR C/O HAVING ISSUES W/ PERITONEAL DIALYSIS CATHETER. PER FAMILY THE MACHINE AT HOME DID NOT TAKE THE SOLUTION OUT OF PATIENT'S ABDOMEN. THEY ALSO STARTED HAVING ISSUES W/ INSERTING AND TAKING OUT THE SOLUTION. FOUL ODOR PER FAMILY FROM DIALYSIS CATHETER. PT HAD TEMPORARY CATHETER PLACED TO R CHEST FOR DIALYSIS. LAST DIALYSIS SUNDAY. WAS TOLD BY HER UROLOGIST DR. CARMEN PARK TO COME TO ED FOR PERITONEAL CATHETER REPLACEMENT. PT ALSO HAVING ISSUES W/ ABDOMEN PAIN/BLOATING AFTER SHE STARTED HAVING ISSUES W/ CATHETER.
[2019-03-27 13:33] LABS: ALANINE AMINOTRANSFERASE 37 U/L (12-78); ALBUMIN 3.1 g/dL (3.4-5.0); ANION GAP 11 mmol/L (5-15); CALCIUM 9.8 mg/dL (8.5-10.1); CHLORIDE 94 mmol/L (98-107); CREATININE 6.95 mg/dL (0.55-1.02)
[2019-03-27 13:34] LABS: MEAN CORPUSCULAR HEMOGLOBIN 28.6 pg (27.0-34.8); MEAN CORPUSCULAR HGB CONC 31.9 g/dL (32.4-35.8); MEAN CORPUSCULAR VOLUME 89.4 fL (80-100); MEAN PLATELET VOLUME 9.3 fL (7.4-10.4); PLATELET COUNT 449 x10^3/uL (130-400); RED BLOOD COUNT 3.38 x10^6/uL (3.82-5.3); RED CELL DISTRIBUTION WIDTH 24.5 % (9.6-15.2)
[2019-03-27 13:35] LABS: ALKALINE PHOSPHATASE 146 U/L (45-117); BILIRUBIN,TOTAL 0.6 mg/dL (0.2-1.0); TOTAL PROTEIN 7.2 g/dL (6.4-8.2)
[2019-03-27 14:20] LABS: MD YES
[2019-03-27 14:25] LABS: EOS#(MANUAL) 0.14 x10^3/uL (0.0-0.4); EOS% (MANUAL) 2 % (1-7); LYMPH#(MANUAL) 1.12 x10^3/uL (1-3.4); LYMPHS% (MANUAL) 16 % (22-44); MONOS#(MANUAL) 0.98 x10^3/uL (0.3-2.7); MONOS% (MANUAL) 14 % (2-9); SEG#(MANUAL) 4.76 x10^3/uL (1.8-6.8); SEGS% (MANUAL) 68 % (42-75)
[2019-03-27 14:26] LABS: <PLATELET ESTIMATE> INCREASED; <PLT MORPHOLOGY> NORMAL PLT MORPH; ANISOCYTOSIS 1+; MICROCYTOSIS 1+; OVALOCYTES 1+; POLYCHROMASIA 1+
--- NOTE | 2019-03-27 14:45 | NUR ---
PT TO BE ADMITTED, PIV INITIATED, NAD NOTED
[2019-03-27] MEDS ORDERED: CEFOTETAN PMX 1GM/50ML 50 ML IV ONE (15:30)
[2019-03-27 16:08] VITALS: BP 189/66
--- NOTE | 2019-03-27 16:12 | NUR ---
LATE ENTRY: REPORT GIVEN TO RECIEVING RN
[2019-03-27] MEDS ORDERED: ACETAMINOPHEN 325 MG TABLET PO PRN (17:00)
[2019-03-27] MEDS ORDERED: DOCUSATE 100 MG CAPSULE PO PRN (17:00)
[2019-03-27] MEDS: SEVELAMER CARBONATE 800MG TAB PO SCH (17:00)
[2019-03-27] MEDS ORDERED: BISACODYL 10 MG SUPP PR PRN (17:00)
[2019-03-27] MEDS ORDERED: ONDANSETRON 2MG/ML, 2ML IVPush PRN (17:00)
[2019-03-27] MEDS ORDERED: POLYETHYLENE GLYCOL 17 GM PACKET PO PRN (17:00)
[2019-03-27] MEDS ORDERED: morphine SULFATE 10 MG/ML, 1ML IVPush PRN (17:00)
[2019-03-27] MEDS ORDERED: LABETALOL 5MG/ML, 20ML IVPush PRN (17:00)
[2019-03-27] MEDS: FLU VACC QS2019-20 36MOS UP/PF 0.5 ML IM ONE ×2 (17:30→23:03)
[2019-03-27] MEDS ORDERED: PHARMACY MAY ADJ FOR RENAL FX MC PRN (17:30)
[2019-03-27] MEDS ORDERED: ARANESP 100 MCG/ML **ESRD SQ SCH (19:00)
[2019-03-27] MEDS: hydrALAzine 20 MG/ML, 1ML IVPush PRN (19:51)
[2019-03-27 19:56] VITALS: BP 166/77
[2019-03-27] MEDS: LISINOPRIL 10 MG TABLET PO SCH (21:00)
[2019-03-27] MEDS: CARVEDILOL 6.25 MG TABLET PO SCH (21:00)
[2019-03-27] MEDS: AMLODIPINE 2.5 MG TABLET PO SCH (21:00)
[2019-03-27] MEDS ORDERED: GLUCAGON 1 MG IM PRN (22:30)
[2019-03-27] MEDS ORDERED: DEXTROSE 4 GM TAB.CHEW PO PRN (22:30)
[2019-03-27] MEDS ORDERED: DEXTROSE 50%, 50ML SYRINGE IVPush PRN (22:30)
[2019-03-27] MEDS: HEPARIN 5,000 UNITS/ML, 1ML SQ SCH (23:00)
[2019-03-27] MEDS: SODIUM CHLORIDE FLUSH 10ML SYR IVF SCH (23:03)
[2019-03-27] MEDS: PIPERACILLIN/TAZO/PMX 2.25GM 50 ML IV SCH (23:26)
[2019-03-28] VITALS (10 sets, daily range): BP systolic 147–197; BP diastolic 47–86
[2019-03-28] MEDS: hydrALAzine 20 MG/ML, 1ML IVPush PRN ×2 (01:51→14:35)
[2019-03-28 05:29] LABS: MEAN CORPUSCULAR HEMOGLOBIN 29.4 pg (27.0-34.8); MEAN CORPUSCULAR HGB CONC 32.1 g/dL (32.4-35.8); MEAN CORPUSCULAR VOLUME 91.6 fL (80-100); MEAN PLATELET VOLUME 9.4 fL (7.4-10.4); PLATELET COUNT 387 x10^3/uL (130-400); RED BLOOD COUNT 3.17 x10^6/uL (3.82-5.3)
[2019-03-28 05:39] LABS: ALANINE AMINOTRANSFERASE 31 U/L (12-78); ALBUMIN 2.8 g/dL (3.4-5.0); ANION GAP 8 mmol/L (5-15); CHLORIDE 106 mmol/L (98-107); CREATININE 4.33 mg/dL (0.55-1.02)
[2019-03-28 05:41] LABS: ALKALINE PHOSPHATASE 107 U/L (45-117); BILIRUBIN,TOTAL 0.6 mg/dL (0.2-1.0); TOTAL PROTEIN 6.7 g/dL (6.4-8.2)
[2019-03-28 05:57] LABS: BASOPHILS # (AUTO) 0.02 x10^3/uL (0-0.1); BASOPHILS % (AUTO) 0 % (0-1); EOSINOPHILS # (AUTO) 0.17 x10^3/uL (0-0.4); EOSINOPHILS % (AUTO) 3 % (1-7); LYMPHOCYTES # (AUTO) 1.23 x10^3/uL (1-3.4); LYMPHOCYTES % (AUTO) 19 % (22-44); MD SCAN; MONOCYTES # (AUTO) 0.81 x10^3/uL (0.2-0.8); MONOCYTES % (AUTO) 13 % (2-9); NEUTROPHILS # (AUTO) 4.16 x10^3/uL (1.8-6.8); NEUTROPHILS % (AUTO) 65 % (42-75)
[2019-03-28] MEDS: HEPARIN 5,000 UNITS/ML, 1ML SQ SCH ×2 (07:00→14:24)
[2019-03-28] MEDS: INSULIN LISPRO 100 UNITS/ML, PEN SQ-INSULIN SCH ×5 (07:00→22:23)
[2019-03-28] MEDS: SEVELAMER CARBONATE 800MG TAB PO SCH ×3 (08:00→20:16)
[2019-03-28] MEDS ORDERED: VANCOMYCIN PER PHARMACY MC PRN (08:30)
[2019-03-28] MEDS: LISINOPRIL 10 MG TABLET PO SCH ×2 (08:51→20:18)
[2019-03-28] MEDS: AMLODIPINE 2.5 MG TABLET PO SCH ×2 (08:51→20:17)
[2019-03-28] MEDS: DULOXETINE 30 MG CAPSULE.DR PO SCH (08:52)
[2019-03-28] MEDS: CALCITRIOL 0.25 MCG CAPSULE PO SCH (08:52)
[2019-03-28] MEDS: CARVEDILOL 6.25 MG TABLET PO SCH ×2 (08:52→20:18)
[2019-03-28] MEDS: PIPERACILLIN/TAZO/PMX 2.25GM 50 ML IV SCH ×2 (08:54→20:16)
[2019-03-28] MEDS: SODIUM CHLORIDE FLUSH 10ML SYR IVF SCH ×2 (08:54→20:18)
[2019-03-28] MEDS ORDERED: PHARMACOKINETIC MONITORING MC PRN (09:00)
[2019-03-28] MEDS ORDERED: PHARMACOKINETIC CONSULTATION MC ONE (09:00)
[2019-03-28] MEDS ORDERED: VANCOMYCIN 1,100 MG in SODIUM CHLORIDE 0.9% 250 ML IV ONE (09:30)
[2019-03-28] MEDS ORDERED: BUPIVACAINE/PF 0.5% ONE (15:58)
[2019-03-28] MEDS ORDERED: EPINEPHRINE 1 MG/ML, 1ML ONE (15:58)
[2019-03-28] MEDS ORDERED: FENTANYL PF 100 MCG/2ML ONE ×2 (15:58→18:20)
[2019-03-28] MEDS ORDERED: LIDOCAINE GEL 2%, 5ML ONE (15:59)
[2019-03-28] MEDS ORDERED: SUCCINYLCHOLINE 20 MG/ML, 10ML ONE (17:09)
[2019-03-28] MEDS ORDERED: ROCURONIUM 10 MG/ML,10ML ONE (17:09)
[2019-03-28] MEDS ORDERED: MIDAZOLAM 1 MG/ML, 2ML IV PRN (17:30)
[2019-03-28] MEDS ORDERED: hydrALAzine 20 MG/ML, 1ML IV PRN (17:30)
[2019-03-28] MEDS ORDERED: OXYcodone 5 MG/5 ML ORAL.SOL UDC PO PRN (17:30)
[2019-03-28] MEDS ORDERED: PROMETHAZINE 25 MG/ML, 1ML IV PRN (17:30)
[2019-03-28] MEDS ORDERED: ACETAMINOPHEN 325 MG TABLET PO PRN (17:30)
[2019-03-28] MEDS ORDERED: METOPROLOL 1 MG/ML, 5ML IV PRN (17:30)
[2019-03-28] MEDS ORDERED: ALBUTEROL/IPRATROPIUM 2.5MG/0.5MG, 3 ML NPPB PRN (17:30)
[2019-03-28] MEDS ORDERED: DEXAMETHASONE 4 MG/ML, 1ML ONE (17:40)
[2019-03-28] MEDS ORDERED: PROPOFOL 10 MG/ML, 20ML ONE (17:40)
[2019-03-28] MEDS ORDERED: ONDANSETRON 2MG/ML, 2ML ONE ×3 (17:40)
[2019-03-28] MEDS: FENTANYL PF 100 MCG/2ML IV PRN ×2 (18:12→18:22)
[2019-03-28] MEDS ORDERED: ALBUTEROL/IPRATROPIUM 2.5MG/0.5MG, 3 ML ONE (18:13)
[2019-03-29] VITALS: BP 156/67
[2019-03-29] MEDS: HEPARIN 5,000 UNITS/ML, 1ML SQ SCH ×4 (00:14→23:50)
[2019-03-29] MEDS: PIPERACILLIN/TAZO/PMX 2.25GM 50 ML IV SCH ×3 (04:26→20:41)
[2019-03-29] MEDS: hydrALAzine 20 MG/ML, 1ML IVPush PRN (05:24)
[2019-03-29 07:15] VITALS: BP 146/63
[2019-03-29] MEDS: DULOXETINE 30 MG CAPSULE.DR PO SCH (08:20)
[2019-03-29] MEDS: CALCITRIOL 0.25 MCG CAPSULE PO SCH (08:20)
[2019-03-29] MEDS: SEVELAMER CARBONATE 800MG TAB PO SCH ×3 (08:21→16:54)
[2019-03-29 08:22] LABS: MEAN CORPUSCULAR HEMOGLOBIN 29.2 pg (27.0-34.8); MEAN CORPUSCULAR HGB CONC 31.9 g/dL (32.4-35.8); MEAN CORPUSCULAR VOLUME 91.8 fL (80-100); MEAN PLATELET VOLUME 9.7 fL (7.4-10.4); PLATELET COUNT 339 x10^3/uL (130-400); RED BLOOD COUNT 3.06 x10^6/uL (3.82-5.3); RED CELL DISTRIBUTION WIDTH 24.6 % (9.6-15.2)
[2019-03-29] MEDS: INSULIN LISPRO 100 UNITS/ML, PEN SQ-INSULIN SCH ×4 (08:30→20:42)
[2019-03-29 08:43] LABS: ALANINE AMINOTRANSFERASE 24 U/L (12-78); ALBUMIN 2.6 g/dL (3.4-5.0); ALKALINE PHOSPHATASE 100 U/L (45-117); ANION GAP 10 mmol/L (5-15); BASOPHILS # (AUTO) 0.01 x10^3/uL (0-0.1); BASOPHILS % (AUTO) 0 % (0-1); BILIRUBIN,TOTAL 0.5 mg/dL (0.2-1.0); CALCIUM 8.8 mg/dL (8.5-10.1); CHLORIDE 105 mmol/L (98-107); CREATININE 6.39 mg/dL (0.55-1.02); EOSINOPHILS # (AUTO) 0.03 x10^3/uL (0-0.4); EOSINOPHILS % (AUTO) 1 % (1-7); LYMPHOCYTES # (AUTO) 0.77 x10^3/uL (1-3.4); LYMPHOCYTES % (AUTO) 16 % (22-44); MD SCAN; MONOCYTES # (AUTO) 0.33 x10^3/uL (0.2-0.8); MONOCYTES % (AUTO) 7 % (2-9); NEUTROPHILS # (AUTO) 3.58 x10^3/uL (1.8-6.8); NEUTROPHILS % (AUTO) 76 % (42-75); TOTAL PROTEIN 6.1 g/dL (6.4-8.2)
[2019-03-29] MEDS: LISINOPRIL 10 MG TABLET PO SCH ×2 (09:00→20:40)
[2019-03-29] MEDS: AMLODIPINE 2.5 MG TABLET PO SCH ×2 (09:00→20:40)
[2019-03-29] MEDS: SODIUM CHLORIDE FLUSH 10ML SYR IVF SCH ×2 (09:18→20:41)
[2019-03-29] MEDS: INSULIN GLARGINE 100 UNITS/ML, PEN SQ-INSULIN SCH ×2 (09:36→20:42)
[2019-03-29 14:00] VITALS: BP 147/56
[2019-03-29] MEDS: CARVEDILOL 6.25 MG TABLET PO SCH ×2 (14:57→20:41)
[2019-03-29 19:18] VITALS: BP 132/62
[2019-03-30] VITALS (7 sets, daily range): BP systolic 132–177; BP diastolic 56–69
[2019-03-30] MEDS: hydrALAzine 20 MG/ML, 1ML IVPush PRN (02:18)
[2019-03-30] MEDS: PIPERACILLIN/TAZO/PMX 2.25GM 50 ML IV SCH ×3 (04:25→19:50)
[2019-03-30 05:32] LABS: MEAN CORPUSCULAR HEMOGLOBIN 29.4 pg (27.0-34.8); MEAN CORPUSCULAR HGB CONC 31.9 g/dL (32.4-35.8); MEAN CORPUSCULAR VOLUME 92.2 fL (80-100); MEAN PLATELET VOLUME 9.8 fL (7.4-10.4); PLATELET COUNT 374 x10^3/uL (130-400); RED CELL DISTRIBUTION WIDTH 24.3 % (9.6-15.2)
[2019-03-30 05:36] LABS: CHLORIDE 101 mmol/L (98-107)
[2019-03-30 05:45] LABS: ANION GAP 9 mmol/L (5-15); CALCIUM 9.3 mg/dL (8.5-10.1); CREATININE 5.83 mg/dL (0.55-1.02); VANCOMYCIN,RANDOM 15.3 mcg/mL
[2019-03-30 06:19] LABS: BASOPHILS # (AUTO) 0.03 x10^3/uL (0-0.1); BASOPHILS % (AUTO) 1 % (0-1); EOSINOPHILS # (AUTO) 0.27 x10^3/uL (0-0.4); EOSINOPHILS % (AUTO) 5 % (1-7); LYMPHOCYTES # (AUTO) 1.42 x10^3/uL (1-3.4); LYMPHOCYTES % (AUTO) 26 % (22-44); MD SCAN; MONOCYTES # (AUTO) 0.75 x10^3/uL (0.2-0.8); MONOCYTES % (AUTO) 14 % (2-9); NEUTROPHILS # (AUTO) 2.98 x10^3/uL (1.8-6.8); NEUTROPHILS % (AUTO) 55 % (42-75)
[2019-03-30] MEDS: AMLODIPINE 2.5 MG TABLET PO SCH (08:02)
[2019-03-30] MEDS: SEVELAMER CARBONATE 800MG TAB PO SCH ×3 (08:02→15:41)
[2019-03-30] MEDS: DULOXETINE 30 MG CAPSULE.DR PO SCH (08:03)
[2019-03-30] MEDS: CARVEDILOL 6.25 MG TABLET PO SCH ×2 (08:03→20:11)
[2019-03-30] MEDS: LISINOPRIL 10 MG TABLET PO SCH ×2 (08:03→20:11)
[2019-03-30] MEDS: INSULIN LISPRO 100 UNITS/ML, PEN SQ-INSULIN SCH ×4 (08:05→20:12)
[2019-03-30] MEDS: SODIUM CHLORIDE FLUSH 10ML SYR IVF SCH ×2 (08:05→20:10)
[2019-03-30] MEDS: CALCITRIOL 0.25 MCG CAPSULE PO SCH (08:05)
[2019-03-30] MEDS: INSULIN GLARGINE 100 UNITS/ML, PEN SQ-INSULIN SCH ×2 (08:06→20:12)
[2019-03-30] MEDS: HEPARIN 5,000 UNITS/ML, 1ML SQ SCH ×3 (08:13→23:43)
[2019-03-30] MEDS ORDERED: POLYETHYLENE GLYCOL 17 GM PACKET NG ONE (10:00)
[2019-03-30] MEDS ORDERED: VANCOMYCIN PMX 1GM/200ML 200 ML IVPB ONE (15:00)
[2019-03-30] MEDS: AMLODIPINE 5 MG TABLET PO SCH (20:11)
[2019-03-31] MEDS: PIPERACILLIN/TAZO/PMX 2.25GM 50 ML IV SCH ×2 (04:09→12:44)
[2019-03-31 05:40] LABS: MEAN CORPUSCULAR HEMOGLOBIN 28.5 pg (27.0-34.8); MEAN CORPUSCULAR HGB CONC 31.5 g/dL (32.4-35.8); MEAN CORPUSCULAR VOLUME 90.4 fL (80-100); MEAN PLATELET VOLUME 9.1 fL (7.4-10.4); PLATELET COUNT 331 x10^3/uL (130-400); RED BLOOD COUNT 3.31 x10^6/uL (3.82-5.3)
[2019-03-31 05:51] LABS: ANION GAP 8 mmol/L (5-15); CALCIUM 9.3 mg/dL (8.5-10.1); CHLORIDE 100 mmol/L (98-107); CREATININE 7.84 mg/dL (0.55-1.02)
[2019-03-31 06:56] VITALS: BP 175/73
[2019-03-31 07:25] LABS: BASOPHILS # (AUTO) 0.04 x10^3/uL (0-0.1); BASOPHILS % (AUTO) 1 % (0-1); EOSINOPHILS # (AUTO) 0.37 x10^3/uL (0-0.4); EOSINOPHILS % (AUTO) 6 % (1-7); LYMPHOCYTES % (AUTO) 26 % (22-44); MD SCAN; MONOCYTES # (AUTO) 0.95 x10^3/uL (0.2-0.8); MONOCYTES % (AUTO) 16 % (2-9); NEUTROPHILS # (AUTO) 2.93 x10^3/uL (1.8-6.8); NEUTROPHILS % (AUTO) 51 % (42-75)
[2019-03-31] MEDS: CALCITRIOL 0.25 MCG CAPSULE PO SCH (09:00)
[2019-03-31] MEDS: SODIUM CHLORIDE FLUSH 10ML SYR IVF SCH (09:00)
[2019-03-31] MEDS: HEPARIN 5,000 UNITS/ML, 1ML SQ SCH ×2 (09:05→16:00)
[2019-03-31] MEDS: LISINOPRIL 10 MG TABLET PO SCH (09:05)
[2019-03-31] MEDS: AMLODIPINE 5 MG TABLET PO SCH (09:05)
[2019-03-31] MEDS: DULOXETINE 30 MG CAPSULE.DR PO SCH (09:05)
[2019-03-31] MEDS: SEVELAMER CARBONATE 800MG TAB PO SCH ×2 (09:06→12:43)
[2019-03-31] MEDS: INSULIN LISPRO 100 UNITS/ML, PEN SQ-INSULIN SCH ×3 (09:07→16:42)
[2019-03-31] MEDS: INSULIN GLARGINE 100 UNITS/ML, PEN SQ-INSULIN SCH (09:07)
[2019-03-31] MEDS: CARVEDILOL 6.25 MG TABLET PO SCH (09:08)
[2019-03-31 12:23] VITALS: BP 162/68
[2019-03-31] MEDS ORDERED: DOXY100T PO (17:12)
[2019-03-31] MEDS ORDERED: AMLO-150 PO (17:12)
[2019-03-31] MEDS ORDERED: DOXYCYCLINE 100MG TABLET PO SCH (21:00)
== END 2019-03-31 18:24 | disposition home or self-care (01) | DRG 371 ==
LOC: ED 14:30 → EDIP 14:31 → ED 14:53 → 4WST 15:43
PROVIDERS: ADMIT Internal Medicine; ATTEND Internal Medicine
PROC: 5A1D70Z Performance of Urinary Filtration, Intermittent, Less than 6 Hours Per Day (ICD-10-PCS; principal; 2019-03-27)
PROC: 0WPGX3Z Removal of Infusion Device from Peritoneal Cavity, External Approach (ICD-10-PCS; 2019-03-28)
PROC: 5A1D70Z Performance of Urinary Filtration, Intermittent, Less than 6 Hours Per Day (ICD-10-PCS; 2019-03-29)
DX: K65.0 Generalized (acute) peritonitis (principal); N18.6 End stage renal disease; E87.1 Hypo-osmolality and hyponatremia; I12.0 Hypertensive chronic kidney disease with stage 5 chronic kidney disease or end stage renal disease; N25.81 Secondary hyperparathyroidism of renal origin; D63.1 Anemia in chronic kidney disease; E11.22 Type 2 diabetes mellitus with diabetic chronic kidney disease; E11.36 Type 2 diabetes mellitus with diabetic cataract; E11.43 Type 2 diabetes mellitus with diabetic autonomic (poly)neuropathy; E11.65 Type 2 diabetes mellitus with hyperglycemia; E55.9 Vitamin D deficiency, unspecified; F32.9 Major depressive disorder, single episode, unspecified; E11.21 Type 2 diabetes mellitus with diabetic nephropathy; F41.9 Anxiety disorder, unspecified; H54.62 Unqualified visual loss, left eye, normal vision right eye; I16.0 Hypertensive urgency; I95.1 Orthostatic hypotension; K21.9 Gastro-esophageal reflux disease without esophagitis; K59.00 Constipation, unspecified; Z82.49 Family history of ischemic heart disease and other diseases of the circulatory system; Z83.3 Family history of diabetes mellitus; Z99.2 Dependence on renal dialysis
CPT/HCPCS: 36415; 99285; J7620; S0020; 80048; 80053; 80202; 82962; 83690; 83735; 84100; 85025; 87070; 87075; 87077; 87102; 87186; 87205; 90686; 90935; 93005; 94640; G0378; J0171; J0882; J1100; J1644; J2405; J2543; J2704; J3010; J3370; J0330; J0360; J1815; J3490; J7050

== ENCOUNTER 2019-04-16 09:03 | Day surgery (SDC) | payer OTHER ==
[~2019-04-16] VITALS: Ht 160 cm; Wt 52.0 kg
[~2019-04-16 09:03] MED LIST changes: +DOXY100T PO
[2019-04-16] MEDS ORDERED: CALC0.25 PO (10:25)
[2019-04-16] MEDS ORDERED: IRBE75TA10 PO (10:25)
[2019-04-16] MEDS ORDERED: FOLI1CAP9 PO (10:25)
[2019-04-16] MEDS ORDERED: LISI-170 PO (10:25)
[2019-04-16] MEDS ORDERED: AMLO-150 PO (10:25)
[2019-04-16] MEDS ORDERED: VIT1TABL46 PO (10:25)
[2019-04-16] MEDS ORDERED: DULO30CA2 PO (10:25)
[2019-04-16] MEDS ORDERED: INSU100C5 SQ-INSULIN ×2 (10:25→10:34)
[2019-04-16] MEDS ORDERED: CARV6.252 PO (10:25)
[2019-04-16] MEDS ORDERED: SEVE800T8 PO (10:25)
[2019-04-16] MEDS ORDERED: ASCO10004 PO (10:25)
[2019-04-16] MEDS ORDERED: CHOL2000 PO (10:25)
[2019-04-16] MEDS ORDERED: INSU100V35 SQ (10:34)
[2019-04-16 10:35] VITALS: BP 211/77
[2019-04-16] MEDS: SODIUM CHLORIDE 0.9% 1,000 ML IV SCH ×2 (10:41→10:51)
[2019-04-16 10:54] LABS: BASOPHILS # (AUTO) 0.01 x10^3/uL (0-0.1); BASOPHILS % (AUTO) 0 % (0-1); EOSINOPHILS # (AUTO) 0.13 x10^3/uL (0-0.4); EOSINOPHILS % (AUTO) 3 % (1-7); LYMPHOCYTES # (AUTO) 1.34 x10^3/uL (1-3.4); LYMPHOCYTES % (AUTO) 30 % (22-44); MD NO; MEAN CORPUSCULAR HEMOGLOBIN 28.3 pg (27.0-34.8); MEAN CORPUSCULAR HGB CONC 31.7 g/dL (32.4-35.8); MEAN CORPUSCULAR VOLUME 89.3 fL (80-100); MEAN PLATELET VOLUME 10.1 fL (7.4-10.4); MONOCYTES # (AUTO) 0.53 x10^3/uL (0.2-0.8); MONOCYTES % (AUTO) 12 % (2-9); NEUTROPHILS # (AUTO) 2.46 x10^3/uL (1.8-6.8); NEUTROPHILS % (AUTO) 55 % (42-75); PLATELET COUNT 246 x10^3/uL (130-400); RED BLOOD COUNT 4.83 x10^6/uL (3.82-5.3); RED CELL DISTRIBUTION WIDTH 19.3 % (9.6-15.2)
[2019-04-16 11:00] LABS: INTERNATIONAL NORMALIZED RATIO 0.94 (0.93-1.1); PROTHROMBIN TIME 9.9 Seconds (9.6-11.5)
[2019-04-16] MEDS ORDERED: LIDOCAINE-MPF 1%, 2ML INFIL ONE (11:00)
[2019-04-16 11:03] LABS: ALANINE AMINOTRANSFERASE 54 U/L (12-78); ALBUMIN 3.7 g/dL (3.4-5.0); ANION GAP 10 mmol/L (5-15); CALCIUM 9.3 mg/dL (8.5-10.1); CHLORIDE 97 mmol/L (98-107); CREATININE 5.94 mg/dL (0.55-1.02)
[2019-04-16 11:05] LABS: ALKALINE PHOSPHATASE 125 U/L (45-117); BILIRUBIN,TOTAL 0.9 mg/dL (0.2-1.0); TOTAL PROTEIN 8.1 g/dL (6.4-8.2)
[2019-04-16] MEDS ORDERED: PROPOFOL 10 MG/ML, 50ML ONE (11:25)
[2019-04-16] MEDS ORDERED: GENTAMICIN 80 MG in SODIUM CHLORIDE 0.9% 50 ML IV ONE (11:30)
[2019-04-16] MEDS ORDERED: AMPICILLIN 1 GM in SODIUM CHLORIDE 0.9% 100 ML IV ONE (11:30)
[2019-04-16] MEDS ORDERED: FENTANYL PF 100 MCG/2ML IV PRN (12:00)
[2019-04-16] MEDS ORDERED: METOPROLOL 1 MG/ML, 5ML IV PRN (12:00)
[2019-04-16] MEDS ORDERED: MIDAZOLAM 1 MG/ML, 2ML IV PRN (12:00)
[2019-04-16] MEDS ORDERED: DIPHENHYDRAMINE 50 MG/ML, 1ML IVPush PRN (12:00)
[2019-04-16] MEDS ORDERED: EPHEDRINE 50 MG/ML, 1ML IVPush PRN (12:00)
[2019-04-16] MEDS ORDERED: PROMETHAZINE 25 MG/ML, 1ML IV PRN (12:00)
[2019-04-16] MEDS ORDERED: MORPHINE SULFATE 4 MG/ML, 1ML IVPush PRN (12:00)
[2019-04-16] MEDS ORDERED: hydrALAzine 20 MG/ML, 1ML IV PRN (12:00)
[2019-04-16] MEDS ORDERED: ONDANSETRON 2MG/ML, 2ML IV PRN (12:00)
[2019-04-16] MEDS ORDERED: ONDANSETRON ODT 8 MG PO PRN (12:00)
[2019-04-16] MEDS ORDERED: OXYcodone 5 MG/5 ML ORAL.SOL UDC PO PRN (12:00)
== END 2019-04-16 14:00 | disposition home or self-care (01) ==
LOC: OUT 09:03
PROVIDERS: ATTEND Internal Medicine
DX: R11.2 Nausea with vomiting, unspecified (principal); K29.50 Unspecified chronic gastritis without bleeding; K62.89 Other specified diseases of anus and rectum; K63.89 Other specified diseases of intestine; K62.6 Ulcer of anus and rectum; K44.9 Diaphragmatic hernia without obstruction or gangrene; E11.22 Type 2 diabetes mellitus with diabetic chronic kidney disease; I12.0 Hypertensive chronic kidney disease with stage 5 chronic kidney disease or end stage renal disease; N18.6 End stage renal disease; Z79.84 Long term (current) use of oral hypoglycemic drugs
CPT/HCPCS: 43239; 45380; 80053; 82962; 85025; 85610; 85730; 88305; 88342; 93005; J2704; J7030

== ENCOUNTER 2019-05-13 12:04 | Inpatient (IN) | payer OTHER ==
[~2019-05-13] VITALS: Ht 160 cm; Wt 53.2 kg
[~2019-05-13 12:04] MED LIST changes: +CARV6.252 PO; +CHOL2000 PO; +FOLI1CAP9 PO; +INSU100C5 SQ-INSULIN; +INSU100V35 SQ; +LISI-170 PO; +VIT1TABL46 PO
[2019-05-13] MEDS ORDERED: SODIUM CHLORIDE FLUSH 10ML SYR IVF ONE (12:30)
[2019-05-13 13:06] LABS: BASOPHILS # (AUTO) 0.02 x10^3/uL (0-0.1); BASOPHILS % (AUTO) 0 % (0-1); EOSINOPHILS # (AUTO) 0.21 x10^3/uL (0-0.4); EOSINOPHILS % (AUTO) 2 % (1-7); LYMPHOCYTES # (AUTO) 1.54 x10^3/uL (1-3.4); LYMPHOCYTES % (AUTO) 18 % (22-44); MD NO; MEAN CORPUSCULAR HEMOGLOBIN 26.9 pg (27.0-34.8); MEAN CORPUSCULAR HGB CONC 31.9 g/dL (32.4-35.8); MEAN CORPUSCULAR VOLUME 84.4 fL (80-100); MEAN PLATELET VOLUME 11.3 fL (7.4-10.4); MONOCYTES # (AUTO) 0.54 x10^3/uL (0.2-0.8); MONOCYTES % (AUTO) 6 % (2-9); NEUTROPHILS # (AUTO) 6.31 x10^3/uL (1.8-6.8); NEUTROPHILS % (AUTO) 73 % (42-75); PLATELET COUNT 257 x10^3/uL (130-400); RED BLOOD COUNT 4.68 x10^6/uL (3.82-5.3); RED CELL DISTRIBUTION WIDTH 18.6 % (9.6-15.2)
[2019-05-13 13:14] LABS: ALBUMIN 3.6 g/dL (3.4-5.0); ANION GAP 14 mmol/L (5-15); CALCIUM 9.5 mg/dL (8.5-10.1); CHLORIDE 93 mmol/L (98-107)
[2019-05-13 13:18] LABS: ALKALINE PHOSPHATASE 225 U/L (45-117); BILIRUBIN,TOTAL 0.8 mg/dL (0.2-1.0); TOTAL PROTEIN 8.1 g/dL (6.4-8.2); TROPONIN I < 0.015 ng/mL (0.000-0.045)
[2019-05-13 13:21] LABS: ALANINE AMINOTRANSFERASE 99 U/L (12-78)
--- NOTE | 2019-05-13 13:28 | NUR ---
PT TO ROOM FROM LOBBY, ARMENIAN SPEAKING ONLY. PT TO CHANGE INTO GOWN AND WILL OBTAIN FACILITIES MAINTENANCE ASSISTANT.
--- NOTE | 2019-05-13 14:30 | NUR ---
IV ESTABLISHED. MD AT BEDSIDE
--- NOTE | 2019-05-13 15:30 | NUR ---
ADMITTING MD AT BEDSIDE. MED REC UPDATED. AWAITING BED ASSIGNMENT. REPORT TO BREAK OTILIA WILLSON/ROCAEL
[2019-05-13] MEDS ORDERED: VITA1CAP PO (15:46)
[2019-05-13] MEDS ORDERED: CALC0.25 PO ×2 (15:47)
[2019-05-13] MEDS ORDERED: CHOL2000 PO (15:56)
[2019-05-13] MEDS ORDERED: ASCO10004 PO (15:56)
[2019-05-13] MEDS ORDERED: CARV6.252 PO (15:56)
[2019-05-13] MEDS ORDERED: NIFE30TA13 PO (15:56)
[2019-05-13] MEDS ORDERED: LISI-167 PO (15:56)
[2019-05-13] MEDS ORDERED: DULO30CA2 PO (15:56)
[2019-05-13] MEDS ORDERED: INSU100I32 SQ (15:56)
[2019-05-13] MEDS ORDERED: SEVE800T8 PO (15:56)
[2019-05-13] MEDS ORDERED: OMEP-110 PO (15:58)
[2019-05-13] MEDS: INSULIN LISPRO 100 UNITS/ML, PEN SQ-INSULIN SCH ×2 (16:00→21:38)
[2019-05-13] MEDS ORDERED: ONDANSETRON ODT 4 MG PO PRN (16:00)
[2019-05-13] MEDS ORDERED: ACETAMINOPHEN 325 MG TABLET PO PRN (16:00)
[2019-05-13] MEDS ORDERED: ONDANSETRON 2MG/ML, 2ML IVPush PRN (16:00)
--- NOTE | 2019-05-13 16:12 | NUR ---
REPORT TO SHEILA BINGHAM. THIS RN REPORTED TO RN AND MD PTS BP. ADMITTING MD TO PUT IN ORDERS.
[2019-05-13 16:37] LABS: HEMOGLOBIN A1C 7.8 % (4.2-6.3)
[2019-05-13 16:53] VITALS: BP 217/88
[2019-05-13] MEDS: SEVELAMER CARBONATE 800MG TAB PO SCH (17:00)
[2019-05-13 17:01] VITALS: BP 190/98
[2019-05-13 19:13] LABS: RAPID INFLUENZA A Negative (Negative); RAPID INFLUENZA B Negative (Negative)
[2019-05-13 19:37] LABS: TROPONIN I < 0.015 ng/mL (0.000-0.045)
[2019-05-13 19:50] VITALS: BP 217/88
[2019-05-13 20:55] VITALS: BP 204/101
[2019-05-13] MEDS: CARVEDILOL 6.25 MG TABLET PO SCH ×2 (20:59→21:38)
[2019-05-13] MEDS: HEPARIN 5,000 UNITS/ML, 1ML SQ SCH (21:00)
[2019-05-13] MEDS: niFEDipine ER 30 MG TABLET.ER PO SCH (21:29)
[2019-05-13] MEDS: LISINOPRIL 10 MG TABLET PO SCH (21:37)
[2019-05-14] VITALS (10 sets, daily range): BP systolic 165–219; BP diastolic 65–91
[2019-05-14] MEDS: LISINOPRIL 10 MG TABLET PO SCH ×3 (00:38→20:15)
[2019-05-14] MEDS: hydrALAzine 20 MG/ML, 1ML IV PRN ×2 (01:54→21:59)
[2019-05-14 04:11] LABS: TROPONIN I 0.022 ng/mL (0.000-0.045)
[2019-05-14 04:43] LABS: BASOPHILS # (AUTO) 0.02 x10^3/uL (0-0.1); BASOPHILS % (AUTO) 0 % (0-1); EOSINOPHILS # (AUTO) 0.15 x10^3/uL (0-0.4); EOSINOPHILS % (AUTO) 2 % (1-7); LYMPHOCYTES # (AUTO) 1.34 x10^3/uL (1-3.4); LYMPHOCYTES % (AUTO) 18 % (22-44); MD NO; MEAN CORPUSCULAR HEMOGLOBIN 26.8 pg (27.0-34.8); MEAN CORPUSCULAR HGB CONC 31.9 g/dL (32.4-35.8); MEAN CORPUSCULAR VOLUME 83.9 fL (80-100); MEAN PLATELET VOLUME 10.8 fL (7.4-10.4); MONOCYTES # (AUTO) 0.57 x10^3/uL (0.2-0.8); MONOCYTES % (AUTO) 8 % (2-9); NEUTROPHILS # (AUTO) 5.23 x10^3/uL (1.8-6.8); NEUTROPHILS % (AUTO) 71 % (42-75); PLATELET COUNT 247 x10^3/uL (130-400); RED BLOOD COUNT 4.47 x10^6/uL (3.82-5.3); RED CELL DISTRIBUTION WIDTH 18.2 % (9.6-15.2)
[2019-05-14 04:45] LABS: INTERNATIONAL NORMALIZED RATIO 0.91 (0.93-1.1); PROTHROMBIN TIME 9.6 Seconds (9.6-11.5)
[2019-05-14 04:50] LABS: CALCIUM 8.8 mg/dL (8.5-10.1); CHLORIDE 96 mmol/L (98-107)
[2019-05-14 04:55] LABS: ALANINE AMINOTRANSFERASE 78 U/L (12-78); ALBUMIN 3.2 g/dL (3.4-5.0); ALKALINE PHOSPHATASE 201 U/L (45-117); ANION GAP 11 mmol/L (5-15); BILIRUBIN,TOTAL 0.9 mg/dL (0.2-1.0); CREATININE 6.87 mg/dL (0.55-1.02); TOTAL PROTEIN 7.3 g/dL (6.4-8.2)
[2019-05-14] MEDS: CARVEDILOL 6.25 MG TABLET PO SCH (06:19)
[2019-05-14] MEDS: OMEPRAZOLE 20 MG CAPSULE.DR PO SCH (06:19)
[2019-05-14] MEDS: HEPARIN 5,000 UNITS/ML, 1ML SQ SCH ×3 (06:20→20:16)
[2019-05-14] MEDS: INSULIN LISPRO 100 UNITS/ML, PEN SQ-INSULIN SCH ×4 (07:00→21:00)
[2019-05-14] MEDS: SEVELAMER CARBONATE 800MG TAB PO SCH ×3 (08:51→17:30)
[2019-05-14] MEDS: CALCITRIOL 0.25 MCG CAPSULE PO SCH (08:51)
[2019-05-14] MEDS: DULOXETINE 30 MG CAPSULE.DR PO SCH (08:51)
[2019-05-14] MEDS: niFEDipine ER 30 MG TABLET.ER PO SCH ×2 (09:57→20:15)
[2019-05-14] MEDS ORDERED: CARVEDILOL 6.25 MG TABLET PO ONE (10:30)
[2019-05-14] MEDS ORDERED: MELATONIN 3 MG TABLET PO PRN (10:30)
[2019-05-14] MEDS: CARVEDILOL 12.5 MG TABLET PO SCH (17:30)
[2019-05-14 18:31] LABS: MICROSCOPIC AUTO
[2019-05-14 18:40] LABS: CULTURE INDICATED? NO
[2019-05-14] MEDS ORDERED: LISINOPRIL 10 MG TABLET PO ONE (23:00)
[2019-05-14] MEDS ORDERED: hydrALAzine 20 MG/ML, 1ML IV ONE (23:00)
[2019-05-15 02:34] VITALS: BP 174/68
[2019-05-15] MEDS: OMEPRAZOLE 20 MG CAPSULE.DR PO SCH (05:30)
[2019-05-15] MEDS: CARVEDILOL 12.5 MG TABLET PO SCH ×2 (05:30→17:34)
[2019-05-15] MEDS ORDERED: hydrALAzine 20 MG/ML, 1ML IV PRN (05:30)
[2019-05-15] MEDS: HEPARIN 5,000 UNITS/ML, 1ML SQ SCH ×4 (05:31→23:50)
[2019-05-15 05:38] LABS: BASOPHILS # (AUTO) 0.02 x10^3/uL (0-0.1); BASOPHILS % (AUTO) 0 % (0-1); EOSINOPHILS # (AUTO) 0.14 x10^3/uL (0-0.4); EOSINOPHILS % (AUTO) 2 % (1-7); LYMPHOCYTES # (AUTO) 1.46 x10^3/uL (1-3.4); LYMPHOCYTES % (AUTO) 22 % (22-44); MD NO; MEAN CORPUSCULAR HEMOGLOBIN 26.9 pg (27.0-34.8); MEAN CORPUSCULAR HGB CONC 31.7 g/dL (32.4-35.8); MEAN CORPUSCULAR VOLUME 84.8 fL (80-100); MONOCYTES # (AUTO) 0.61 x10^3/uL (0.2-0.8); MONOCYTES % (AUTO) 9 % (2-9); NEUTROPHILS # (AUTO) 4.31 x10^3/uL (1.8-6.8); NEUTROPHILS % (AUTO) 66 % (42-75); PLATELET COUNT 228 x10^3/uL (130-400); RED BLOOD COUNT 4.39 x10^6/uL (3.82-5.3); RED CELL DISTRIBUTION WIDTH 18.5 % (9.6-15.2)
[2019-05-15 05:52] LABS: ALBUMIN 2.9 g/dL (3.4-5.0); ANION GAP 9 mmol/L (5-15); CHLORIDE 99 mmol/L (98-107)
[2019-05-15 05:58] LABS: % IRON SATURATION 29 % (20-55); CREATININE 6.69 mg/dL (0.55-1.02); IRON LEVEL 55 mcg/dL (50-170); TOTAL IRON BINDING CAPACITY 191 mcg/dL (250-450)
[2019-05-15 06:28] VITALS: BP 168/74
[2019-05-15 07:04] VITALS: BP 171/70
[2019-05-15] MEDS: niFEDipine ER 30 MG TABLET.ER PO SCH ×2 (09:03→21:47)
[2019-05-15] MEDS: LISINOPRIL 20 MG TABLET PO SCH ×2 (09:03→21:47)
[2019-05-15] MEDS: DULOXETINE 30 MG CAPSULE.DR PO SCH (09:03)
[2019-05-15] MEDS: INSULIN LISPRO 100 UNITS/ML, PEN SQ-INSULIN SCH ×4 (09:03→21:47)
[2019-05-15] MEDS: CALCITRIOL 0.25 MCG CAPSULE PO SCH (09:03)
[2019-05-15] MEDS: SEVELAMER CARBONATE 800MG TAB PO SCH ×3 (09:03→17:33)
[2019-05-15] MEDS ORDERED: INSULIN GLARGINE 100 UNITS/ML, PEN SQ-INSULIN SCH (09:30)
[2019-05-15 16:27] VITALS: BP 157/83
[2019-05-15 20:00] VITALS: BP 159/64
[2019-05-15] MEDS ORDERED: INSULIN LISPRO 100 UNIT/ML, 3ML VIAL SQ-INSULIN ONE (21:30)
[2019-05-16 03:23] VITALS: BP 167/67
[2019-05-16 04:41] LABS: BASOPHILS # (AUTO) 0.03 x10^3/uL (0-0.1); BASOPHILS % (AUTO) 1 % (0-1); EOSINOPHILS # (AUTO) 0.24 x10^3/uL (0-0.4); EOSINOPHILS % (AUTO) 4 % (1-7); LYMPHOCYTES # (AUTO) 1.72 x10^3/uL (1-3.4); LYMPHOCYTES % (AUTO) 27 % (22-44); MD NO; MEAN CORPUSCULAR HEMOGLOBIN 26.9 pg (27.0-34.8); MEAN PLATELET VOLUME 10.8 fL (7.4-10.4); MONOCYTES # (AUTO) 0.91 x10^3/uL (0.2-0.8); MONOCYTES % (AUTO) 15 % (2-9); NEUTROPHILS # (AUTO) 3.39 x10^3/uL (1.8-6.8); NEUTROPHILS % (AUTO) 54 % (42-75); PLATELET COUNT 238 x10^3/uL (130-400); RED BLOOD COUNT 4.08 x10^6/uL (3.82-5.3); RED CELL DISTRIBUTION WIDTH 18.1 % (9.6-15.2)
[2019-05-16 04:52] LABS: ANION GAP 11 mmol/L (5-15); CHLORIDE 94 mmol/L (98-107); CREATININE 5.77 mg/dL (0.55-1.02)
[2019-05-16] MEDS: OMEPRAZOLE 20 MG CAPSULE.DR PO SCH (05:55)
[2019-05-16] MEDS: CARVEDILOL 12.5 MG TABLET PO SCH (05:55)
[2019-05-16 07:02] VITALS: BP 172/63
[2019-05-16] MEDS: HEPARIN 5,000 UNITS/ML, 1ML SQ SCH (08:00)
[2019-05-16] MEDS: SEVELAMER CARBONATE 800MG TAB PO SCH (08:32)
[2019-05-16] MEDS: INSULIN LISPRO 100 UNITS/ML, PEN SQ-INSULIN SCH (08:32)
[2019-05-16] MEDS: DULOXETINE 30 MG CAPSULE.DR PO SCH (08:33)
[2019-05-16] MEDS: LISINOPRIL 20 MG TABLET PO SCH (08:33)
[2019-05-16] MEDS: CALCITRIOL 0.25 MCG CAPSULE PO SCH (08:33)
[2019-05-16] MEDS: niFEDipine ER 30 MG TABLET.ER PO SCH (08:33)
[2019-05-16] MEDS ORDERED: INSULIN GLARGINE 100 UNITS/ML, PEN SQ-INSULIN SCH (09:00)
[2019-05-16] MEDS ORDERED: CARV25TA12 PO (10:40)
[2019-05-16] MEDS ORDERED: LISI-170 PO (10:40)
[2019-05-16] MEDS ORDERED: HYDR-3341 PO (10:40)
[2019-05-16] MEDS ORDERED: INSU100I13 SQ-INSULIN ×2 (10:40)
[2019-05-16] MEDS ORDERED: INSU100I28 SQ (16:53)
[2019-05-16] MEDS ORDERED: CARVEDILOL 25 MG TABLET PO SCH (18:00)
== END 2019-05-16 12:10 | disposition home or self-care (01) | DRG 291 ==
LOC: ED 14:06 → EDIP 14:07 → MERGE 14:07 → ED 14:19 → 5SO 16:34 → DCLOUNGE 05-16 11:39
PROVIDERS: ADMIT Internal Medicine; ATTEND Internal Medicine
PROC: 5A1D70Z Performance of Urinary Filtration, Intermittent, Less than 6 Hours Per Day (ICD-10-PCS; principal; 2019-05-13)
PROC: 5A1D70Z Performance of Urinary Filtration, Intermittent, Less than 6 Hours Per Day (ICD-10-PCS; 2019-05-14)
PROC: 5A1D70Z Performance of Urinary Filtration, Intermittent, Less than 6 Hours Per Day (ICD-10-PCS; 2019-05-15)
DX: I13.2 Hypertensive heart and chronic kidney disease with heart failure and with stage 5 chronic kidney disease, or end stage renal disease (principal); J96.01 Acute respiratory failure with hypoxia; I50.33 Acute on chronic diastolic (congestive) heart failure; K65.9 Peritonitis, unspecified; N18.6 End stage renal disease; E87.1 Hypo-osmolality and hyponatremia; N25.81 Secondary hyperparathyroidism of renal origin; D63.1 Anemia in chronic kidney disease; E11.22 Type 2 diabetes mellitus with diabetic chronic kidney disease; E11.65 Type 2 diabetes mellitus with hyperglycemia; E55.9 Vitamin D deficiency, unspecified; E78.5 Hyperlipidemia, unspecified; E88.89 Other specified metabolic disorders; G60.8 Other hereditary and idiopathic neuropathies; H54.62 Unqualified visual loss, left eye, normal vision right eye; I25.10 Atherosclerotic heart disease of native coronary artery without angina pectoris; I16.0 Hypertensive urgency; I34.0 Nonrheumatic mitral (valve) insufficiency; I95.1 Orthostatic hypotension; N25.0 Renal osteodystrophy; Z79.4 Long term (current) use of insulin; Z79.899 Other long term (current) drug therapy; Z82.49 Family history of ischemic heart disease and other diseases of the circulatory system; Z99.2 Dependence on renal dialysis
CPT/HCPCS: 36415; 71045; 71250; 74176; 76700; 80053; 80069; 81001; 82306; 82728; 82947; 82962; 83036; 83540; 83550; 83880; 83970; 84100; 84145; 84484; 85025; 85610; 86706; 86803; 87040; 87340; 87400; 90935; 93005; 93306; 99285; G0378; J1644; J0360; J1815